=== PATIENT | male | born 1970 | race Caucasian/White ===

== ENCOUNTER → 2018-06-06 12:53 | Outpatient (CLI) | payer OTHER, MEDICAID, SELFPAY ==
[2017-11-07 15:45] VITALS: BMI 37.2
--- NOTE | 2018-06-06 | DI.CT.S_ITS ---
PROCEDURE: CT LUMBAR SPINE WO CON INDICATIONS: LUMBAR RADICULOPATHY BILATERAL TECHNIQUE: Noncontrast 3 mm thick sections acquired from the T12 level to the sacrum. Sagittal and coronal reformats were constructed. In this patient, 3-D reformatted images were also performed. For radiation dose reduction, the following was used: automated exposure control. COMPARISON: [facility], CR, XR LUMBAR SPINE 2-3V, 11/07/2017, 12:38. [facility], MR, L-SPINE W&WO CONTRAST, 04/21/2017, 7:52. [facility], MR, L-SPINE WITHOUT CONTRAST, 11/21/2016, 16:01. [facility], CR, L-SPINE 2-3 VIEWS, 09/27/2016, 9:29. FINDINGS: Image quality: Excellent. Bones: No acute vertebral body compression fractures. No suspicious lytic or blastic bony lesions. Central spinal caliber is of normal overall caliber. No pars defects. Mild dextroconvex scoliotic curvature is seen. No focal AP alignment abnormality is seen. T12-L1: No significant abnormality. L1-L2: Level within normal limits. L2-L3: The disc height is well-preserved. Mild disc bulge is seen. Mild bilateral neural foraminal narrowing is seen. Mild central canal narrowing is seen. L3-L4: The disc height is well-preserved. Moderate disc bulge is seen, which is eccentric to the right side. Moderate bilateral neural foraminal narrowing is seen. Mild to moderate central canal narrowing is seen. L4-L5: Postoperative changes are seen at this level, with bilateral pedicle screws and vertical fixation rods. There is a disc spacer is seen, with a posterior location of the disc spacer itself, as on series 6 image 19 and on series 5 image 27. There is moderate left-sided and mild right-sided neural foraminal narrowing seen. Mild to moderate central canal narrowing is seen. L5-S1: The disc height is well-preserved. Mild generalized disc bulge is seen. Mild facet joint hypertrophy is seen. Bgvm-dy-[id number] bilateral neural foraminal narrowing is seen. Minimal central canal narrowing is seen. Soft tissues: No retroperitoneal masses or hematomas. Visualized aorta is normal in caliber. IMPRESSION: Interval postoperative change at L4-L5. The disc spacer is somewhat posteriorly located. Please correlate with surgical intent. Multiple levels of degenerative change are seen, which are otherwise similar to 2017. Dictated by: Reynaldo Epps M.D. on 06/06/2018 at 14:25 Approved by: Reynaldo Epps M.D. on 06/06/2018 at 14:32
== END ==
PROVIDERS: PCP Family Medicine; Visit Provider Orthopaedic Surgery
DX: M47.26 Other spondylosis with radiculopathy, lumbar region (principal); M48.061 Spinal stenosis, lumbar region without neurogenic claudication; M48.07 Spinal stenosis, lumbosacral region
CPT/HCPCS: 72131

== ENCOUNTER → 2018-11-16 08:21 | Outpatient (CLI) | payer OTHER, MEDICAID, SELFPAY ==
[2017-11-07 15:45] VITALS: BMI 37.2
--- NOTE | 2018-11-16 08:24 | DI.NM.S_ITS ---
PROCEDURE: NM NALINI PERF SPECT R&S PHARM Rest and pharmacological stress myocardial perfusion SPECT with gated imaging and ejection fraction RADIOPHARMACEUTICAL: 25.1 mCi Tc-99m tetrafosmin IV at rest and 25.8 mCi Tc-99m tetrafosmin IV at peak effect of pharmacological stress. Cud-eyc-tkptvwol was performed. INDICATIONS: Diabetes, hypertension,current smoker, hyperlipidemia TECHNIQUE: Radiopharmaceutical was injected at peak stress test, and also at rest. SPECT images were obtained. SPECT myocardial perfusion images were displayed in short axis, horizontal long axis, and vertical long axis views. Gated images were reviewed using [employer] software. COMPARISON: None. CARDIAC STRESS: A pharmacologic stress test was performed under the supervision of an attending staff, using an infusion of lexiscan 0.4mg IV X1. Hemodynamic data: There is normal blood pressure and heart rate response to pharmacologic stress. Symptoms: The patient denied anginal chest pain. Aminophylline: none EKG: Sinus rhythm with no ST-T changes at rest. No diagnostic changes of ischemia with lexiscan; no ectopy. FINDINGS: Raw data: There is good myocardial uptake of radiotracer. No significant motion artifacts. Upxg-fy-qrfuu ratio is 0.44 (normal is less than 0.38 for tetrafosmin tracer). Left ventricle function: Gated images demonstrate normal left ventricular wall thickening. No segmental wall motion abnormalities. No transient ischemic dilation; TID is 0.97 (normal less than 1.3). Left ventricle resting end diastolic volume is 142 mL. Left ventricle stress ejection fraction is 74%; normal range is above 45%. Myocardial perfusion: There is normal distribution of activity in the right and left ventricular myocardium. No fixed or reversible perfusion defects. IMPRESSION: Low risk, normal pharmaceutical nuclear stress test 1) No perfusion evidence of ischemia or infarction. 2) Normal left ventricular size, wall motion, and systolic function (EF post stress 74%). 3) No ECG evidence of ischemia. 4) No angina during the study. 5) No prior nuclear stress test available for comparison. Dictated by: Mariana Latif MD on 11/19/2018 at 11:40 Approved by: Mariana Latif MD on 11/19/2018 at 11:43
--- NOTE | 2018-11-16 09:30 | PM.TREADMILL ---
Cardiac Stress Test Report Referral & Results Date Patient Seen: 11/16/18 Requesting provider: Cate Simmons Indication: Multiple risk factors Rest ECG: Unremarkable Procedure Note: This was initially attempted as a walking Lexiscan but patient was unable to walk even at 0.8 mph for more than 5 or 6 steps. Therefore was converted to a resting Lexiscan exam. After both written and verbal informed consent the patient had an IV started by the diagnostic imaging RN, and then was hooked up to the treadmill monitoring system. The Lexiscan material, and then the Cardiolite tracer, were administered sequentially. An additional 3 min was spent monitoring the patient while supine on the gurney. The patient had a normal response to all infused materials. Impression: See perfusion imaging report for further details Please note: Actual ECG tracings can be found in the PACS system.
== END ==
PROVIDERS: PCP Family Medicine; Visit Provider Family Medicine
DX: E11.9 Type 2 diabetes mellitus without complications (principal); I10 Essential (primary) hypertension; E78.5 Hyperlipidemia, unspecified; F17.200 Nicotine dependence, unspecified, uncomplicated
CPT/HCPCS: 78452; 93016; 93017; 93018; A9502; J2785

== ENCOUNTER → 2018-12-21 08:10 | Outpatient (CLI) | payer OTHER, MEDICAID, SELFPAY ==
[2017-11-07 15:45] VITALS: BMI 37.2
[2018-12-21 09:11] LABS: Appearance Urine UA CLEAR; Bilirubin Urine UA NEGATIVE (NEGATIVE); Color Urine UA YELLOW; Glucose Urine UA NEGATIVE (Negative); Ketones Urine UA NEGATIVE (NEGATIVE); Leukocyte Esterase Urine UA NEGATIVE (NEGATIVE); Nitrite Urine UA NEGATIVE (Negative); Occult Blood Urine UA NEGATIVE (Negative); Protein Urine UA NEGATIVE (Negative); Specific Gravity Urine UA >=1.030 (1.000-1.035)
[2018-12-21 09:22] LABS: Add Manual Diff / Slide Review NO; Basophils Absolute Auto 100 /uL (0-100); Basophils Percent Auto 1.1 % (0-2); Eosinophils Absolute Auto 300 /uL (0-450); Eosinophils Percent Auto 2.8 % (2-4); Hematocrit 46.4 % (41-53); Hemoglobin 15.3 g/dL (13.5-17.5); Lymphocytes Absolute Auto 2500 /uL (1100-4500); Lymphocytes Percent Auto 20.5 % (25-40); Mean Corpuscular Hemoglobin 27.4 PG (26-34); Mean Corpuscular Volume 82.9 fL (80-100); Monocytes Absolute Auto 700 /uL (0-900); Monocytes Percent Auto 5.7 % (3-14); Neutrophils Absolute Auto 8600 /uL (1500-7000); Neutrophils Percent Auto 69.9 % (50-75); Platelet Count 384 X10^3/uL (150-400); Red Cell Distribution Width 13.9 % (11.6-14.8); White Blood Cell Count 12.2 X10^3/uL (4.5-11.0)
[2018-12-21 09:25] LABS: Alanine Aminotransferase 21 IU/L (21-72); Albumin 4.2 g/dL (3.5-5.0); Albumin Globulin Ratio 1.2 (1.0-2.8); Alkaline Phosphatase 102 U/L (38-126); Aspartate Aminotransferase 16 IU/L (17-59); BUN Creatinine Ratio 17.5 (6-22); Bilirubin Total 0.4 mg/dL (0.2-1.3); Blood Urea Nitrogen 14 mg/dL (9-20); Carbon Dioxide 30 mmol/L (22-32); Chloride 101 mmol/L (98-107); Cholesterol 161 mg/dL (140-199); Estimated Glomerular Filt Rate > 60.0 mL/min (>60); Globulin 3.5 g/dL (1.7-4.1); Glucose 148 mg/dL (70-100); HDL Cholesterol 29 mg/dL (40-60); HEMOLYSIS < 15 (0-50); LDL Cholesterol Calculated 114 mg/dL (<100); Potassium 4.2 mmol/L (3.4-5.1); Sodium 139 mmol/L (137-145); Total Protein 7.7 g/dL (6.3-8.2); Triglycerides 92 mg/dL (35-150)
[2018-12-21 09:51] LABS: Prostate Specific Antigen 0.309 ng/mL (0.10-4.00)
[2018-12-21 10:12] LABS: Thyroid Stimulating Hormone 2.31 uIU/mL (0.47-4.68)
== END ==
PROVIDERS: PCP Family Medicine; Visit Provider Family Medicine
DX: E11.9 Type 2 diabetes mellitus without complications (principal); E78.5 Hyperlipidemia, unspecified; I10 Essential (primary) hypertension
CPT/HCPCS: 36415; 80053; 80061; 81003; 83036; 84153; 84443; 85025

== ENCOUNTER → 2019-06-28 09:01 | Outpatient (CLI) | payer OTHER, MEDICAID, SELFPAY ==
[2017-11-07 15:45] VITALS: BMI 37.2
[2019-06-28 09:43] LABS: Hemoglobin A1C% w Est Avg Glu 9.2 % (4.0-6.0)
[2019-06-28 09:59] LABS: BUN Creatinine Ratio 17.1 (6-22); Blood Urea Nitrogen 12 mg/dL (9-20); Estimated Glomerular Filt Rate > 60.0 mL/min (>60)
[2019-06-28 10:03] LABS: Creatinine Urine Random 236.2 mg/dL
[2019-06-28 10:05] LABS: Microalbumi Creatinin Ratio Ur 6.3 ug/mg CR (<30); Microalbumin Urine Random 1.5 mg/dL (0-1.6)
== END ==
PROVIDERS: Family Provider Student in an Organized Health Care Education/Training Program; PCP Family Medicine; Visit Provider Orthopaedic Surgery
DX: Z01.818 Encounter for other preprocedural examination (principal); E11.9 Type 2 diabetes mellitus without complications; E11.69 Type 2 diabetes mellitus with other specified complication; E66.9 Obesity, unspecified
CPT/HCPCS: 36415; 82043; 82565; 82570; 83036; 84520

== ENCOUNTER 2019-08-28 17:57 | Emergency (ER) | payer OTHER, MEDICAID, SELFPAY ==
[2019-07-04 17:57] VITALS: BMI 37.2
[2019-08-28 18:02] VITALS: BP 163/93; PULSE 103; RESP 15; TEMP 37.2; O2SAT 98; BMI 36.7
[2019-08-28 20:35] VITALS: BP 131/83; PULSE 93; RESP 15; O2SAT 96
--- NOTE | 2019-08-28 21:07 | ED_ITS ---
HPI - URI/Sore Throat <JERMAN Naidu - Last Filed: 08/28/19 21:17> General Chief Complaint: Upper Respiratory Symptoms Stated Complaint: cough on going Time Seen by Provider: 08/28/19 19:00 Source: patient Mode of arrival: Ambulatory Limitations: no limitations History of Present Illness HPI Narrative: This is a 48-year-old male, smoker, who presents to ED with cough for 2 months. Patient has history of type 2 diabetes using insulin, hypertension, hyperlipidemia, using albuterol inhaler for allergic asthma. Patient reports he expectorates thick mucus intermittently with some chills with mild nausea. Patient denies fever. He reports has been using inhaler more frequently for his symptoms. Patient had received flu immunization for this season. Patient's spouse is currently ill upper respiratory infection who showed positive a for influenza today. Related Data Previous Rx's Medication Instructions Recorded insulin syringe-needle U-100 1 mL #100 each 07/04/19 31 gauge x 5/16 albuterol sulfate 90 mcg/actuation 2 puff INHALATION Q6H #8.5 gram 07/31/19 aerosol inhaler aspirin 81 mg tablet,delayed 81 mg PO DAILY #90 tab 07/31/19 release bupropion HCl 150 mg tablet,12 hr 150 mg PO DAILY #90 tab 07/31/19 sustained-release hydroxyzine pamoate 25 mg capsule 25 mg PO DAILY #90 cap 07/31/19 insulin regular human 100 unit/mL 10 unit SUBCUT QAC #10 ml MDD 50 07/31/19 injection solution units lisinopril 10 mg tablet 10 mg PO QHS #90 tab 07/31/19 simvastatin 20 mg tablet 20 mg PO QPM #90 tab 07/31/19 insulin detemir U-100 100 unit/mL 35 unit SUBCUT BID #20 ml 08/15/19 subcutaneous solution doxycycline hyclate 100 mg PO BID 7 Days #14 tab 08/28/19 Allergies Allergy/AdvReac Type Severity Reaction Status Date / Time Iodine and Iodide Containing Allergy Severe ANAPHYLACTIC Verified 08/28/19 18:02 Produc RX [IODINE AND IODIDE CONTAINING PRODUC] metformin AdvReac Severe diarrhea Verified 08/28/19 18:02 Review of Systems <JERMAN Naidu - Last Filed: 08/28/19 21:17> Review of Systems Narrative: General: Denies fever, (+) chills, fatigue, malaise, sweats. HEENT: Denies sinus pain, ear pain, sore throat, difficulty swallowing, dizziness. Respiratory: See HPI Cardiovascular: Denies chest pain, palpitations, orthopnea, edema. Gastrointestinal: Denies (+) nausea, vomiting, abdominal pain, diarrhea, constipation, melena. : Denies dysuria, frequency, incontinence, hematuria, urinary retention. Musculoskeletal: Denies weakness, joint pain or bony pain. Skin: Denies rash, skin lesions, or other. Neurologic: Denies weakness, headache, numbness, change in speech, confusion, seizures, incoordination. Psychiatric: No concerning psychosocial issues. 12-point review of systems is negative except for those stated above. Patient History <JERMAN Naidu - Last Filed: 08/28/19 21:17> Medical History Asthma due to environmental allergies (Acute) Hong's palsy (Resolved ~1993) Chickenpox (Resolved 1979) Numbness and tingling of both legs (Acute) Reflux gastritis (Acute) Surgical History H/O lumbar discectomy (Acute) History of arthroscopy of knee (Acute) History of spinal fusion (Acute) S/P arthroscopy of left shoulder (Acute) Family History Father Heart disease Grandmother Cancer Grandfather Diabetes mellitus Heart disease Hypertension Stroke Grandmother Age: 93 Breast cancer Social History household members: spouse and children Smoking Status: Current every day smoker alcohol intake: former Smoking Status: Current every day smoker alcohol intake frequency: holidays/special occasions only Substance Use Type: does not use Exam <JERMAN Naidu - Last Filed: 08/28/19 21:17> Narrative Exam Narrative: GEN: Alert, oriented x 3, well appearing and nourished, and in no acute distress. Head: Normal cephalic, atraumatic. No scalp or temporal tenderness, palpable mass or rash. EYES: Pupils are equal, round, and reactive to light and accommodation. Extraocular muscles are intact bilaterally. There is no subconjunctival hemorrhage, exudate and sclera non-icteric. ENT: Bilateral auditory canals and tympanic membranes clear. Hearing grossly intact. Nose without bleeding, purulent discharge or deviation. Facial sinuses nontender to palpate. Mucous membrane moist, no mucosal lesion. Throat without erythema, tonsillar hypertrophy or exudate. Uvula in midline, airway patent. Neck: Trachea in midline. No JVD, non-tender without lymphadenopathy. No masses or thyroid megaly. Supple, non-tender and no meningeal signs. CARDIAC: Normal regular rate and rhythm without murmurs, gallops, or rubs. No chest wall tenderness. No peripheral edema, cyanosis or pallor. Capillary refill is less than 2 seconds. RESPIRATORY: Lungs are clear to auscultate bilaterally with occasional fine crackles in lower lobes. Occasional cough witnessed without wheezes or rhonchi. No stridor, respiratory distress, increase work of breathing, or accessary muscle used. ABD: Abdomen soft, nontender and non-distended. No guarding or rebound tenderness to palpate. Bowel sounds are normal in all 4 quadrants. There is no palpable masses or organomegaly. EXT: Full painless ROM of all extremities with no loss of sensation, strength, effusion or edema. SKIN: Warm, dry, normal color for patient. No erythema, lesions or rash over visible areas. BACK: Nontender without deformity or crepitance. No flank tenderness. NEUROLOGICAL: Alert and oriented to place, time and person. Sensation and motor function intact bilaterally. No facial droops, dysphasia. PSYCHIATRIC: Good judgement and reason, without hallucinations, abnormal affect or abnormal behaviors during the examination. Patient is not suicidal. Initial Vital Signs Initial Vital Signs: Vital Signs Temperature 98.9 F 08/28/19 18:02 Pulse Rate 103 H 08/28/19 18:02 Respiratory Rate 15 08/28/19 18:02 Blood Pressure 163/93 H 08/28/19 18:02 Pulse Oximetry 98 08/28/19 18:02 <Peri Savage MD - Last Filed: 08/29/19 00:20> Initial Vital Signs Initial Vital Signs: Vital Signs Temperature 98.9 F 08/28/19 18:02 Pulse Rate 103 H 08/28/19 18:02 Respiratory Rate 15 08/28/19 18:02 Blood Pressure 163/93 H 08/28/19 18:02 Pulse Oximetry 98 08/28/19 18:02 Scores <ERIN NaiduP - Last Filed: 08/28/19 21:17> GCS [place] coma scale eye opening: Spontaneous [place] coma scale verbal response: Orientated [place] coma scale motor response: Obey commands [place] coma scale total score: 15 Course <Roland Jose PHOTOGRAMMETRIC TECH - Last Filed: 08/28/19 21:17> Vital Signs Vital signs: Vital Signs - 8 hr 08/28/19 18:02 08/28/19 20:35 Temperature 98.9 F Pulse Rate 103 H 93 H Respiratory Rate 15 15 Blood Pressure 163/93 H 131/83 Pulse Oximetry 98 96 <Peri Savage MD - Last Filed: 08/29/19 00:20> Vital Signs Vital signs: Vital Signs - 8 hr 08/28/19 18:02 08/28/19 20:35 Temperature 98.9 F Pulse Rate 103 H 93 H Respiratory Rate 15 15 Blood Pressure 163/93 H 131/83 Pulse Oximetry 98 96 MDM - URI/Sore Throat <Roland ERIN GarciaP - Last Filed: 08/28/19 21:17> Differential Diagnosis Differential diagnosis: Likely upper respiratory infection, viral infection, bronchitis and other (Pneumonia) Medical Records Attestation: I reviewed the patient's medical records. MDM Narrative Medical decision making narrative: This is 48 year male who presents to ED with ongoing cough for last 2 months who has history of diabetes with insulin use, hypertension, hyperlipidemia and asthma from allergies. Patient reports has been using inhaler more frequently since his illness. Patient does not have obvious constitutional symptoms such as fever but has occasional nausea and chills. Lung sounds were relatively clear in all lobes with exception in lower lobes with very fine crackles. There was no wheezing or increased work of breathing appreciated. Given patient's chronic medical conditions including diabetes, asthma, hypertension and duration of patient's symptoms over 2 months, it is elected to treat patient with 7 day course of doxycycline b.i.d.. Patient advised to use good hand hygiene to prevent exposing to flu from his . Patient advised supportive care and to use inhaler 2 puffs every 4-6 hours as needed for coughing. Influenza medication has not been prescribed at this time since patient does endorses fever, body aches, headache and had received influenza vaccination this season. We discussed smoking cessation to prevent further respiratory illnesses and return precautions. Patient verbalized understanding and in agreement with treatment plan. Discharge Plan Departure Patient Disposition: Home Clinical Impression: Pneumonia Qualifiers: Pneumonia type: due to unspecified organism Laterality: unspecified laterality Lung location: unspecified part of lung Qualified Code(s): J18.9 - Pneumonia, unspecified organism Discharge Date/Time: 08/28/19 20:36 Instructions: DI for Pneumonia -- Adult Activity Restrictions/Additional Instructions: You have been diagnosed with [community-acquired pneumonia. Cough for last 2 months with history of hypertension, insulin-dependent type 2 diabetes, asthma and will cover with antibiotic medication empirically]. What to do: *Take your medications as directed. Please start doxycycline twice a day for next 7 days. Please hydrate adequately, use inhaler 2 puffs every 4-6 hours as needed for frequent coughing. You can use Mucinex DM for your symptoms as well and [id number] Tylenol and or Motrin as needed for discomfort and fever. Please use good hand hygiene to prevent aye to flu. *Follow up with your primary care provider in 2-3 days, call for an appointment. Let them know you were seen in the ED and that we asked you to be seen in [facility]. *Return to ED if you have any new, worsening, or concerning symptoms, such as [chest pain, breathing difficulty, high fever, unable to tolerate fluids or any acute concerns.]. Prescriptions: New doxycycline hyclate 100 mg tablet 100 mg PO BID 7 Days Qty: 14 RF: 0 No Action (DME) insulin syringe-needle U-100 [[facility]ocate Syringes] 1 mL 31 gauge x 5/16 syringe See Dose Instructions .ROUTE .MEDSUPPLY Qty: 100 RF: 3 insulin detemir U-100 100 unit/mL solution 35 unit SUBCUT BID Qty: 20 RF: 5 Humulin R Regular U-100 Insuln 100 unit/mL solution 10 unit SUBCUT QAC MDD 50 units Qty: 10 RF: 5 albuterol sulfate [Proventil HFA] 90 mcg/actuation HFA aerosol inhaler 2 puff INHALATION Q6H Qty: 8.5 RF: 5 aspirin [Adult Low Dose Aspirin] 81 mg tablet,delayed release (DR/EC) 81 mg PO DAILY Qty: 90 RF: 3 bupropion HCl [Wellbutrin SR] 150 mg tablet sustained-release 12 hr 150 mg PO DAILY Qty: 90 RF: 3 hydroxyzine pamoate 25 mg capsule 25 mg PO DAILY Qty: 90 RF: 1 lisinopril 10 mg tablet 10 mg PO QHS Qty: 90 RF: 3 simvastatin 20 mg tablet 20 mg PO QPM Qty: 90 RF: 3 Referrals: Peewee Martinez MD [Primary Care Provider] -
== END 2019-08-28 20:36 | disposition home or self-care (01) ==
PROVIDERS: Emergency Provider Nurse Practitioner Family; Family Provider Student in an Organized Health Care Education/Training Program; PCP Student in an Organized Health Care Education/Training Program
DX: J18.9 Pneumonia, unspecified organism (principal)
CPT/HCPCS: 99281

== ENCOUNTER → 2020-05-13 11:17 | Outpatient (CLI) | payer OTHER, MEDICAID, SELFPAY ==
[2019-07-04 17:57] VITALS: BMI 37.2
[2020-05-13 12:35] LABS: Hemoglobin A1C% w Est Avg Glu 9.1 % (4.0-6.0)
[2020-05-13 12:54] LABS: Alanine Aminotransferase 18 IU/L (<50); Albumin 3.9 g/dL (3.5-5.0); Albumin Globulin Ratio 1.3 (1.0-2.8); Alkaline Phosphatase 90 U/L (38-126); Aspartate Aminotransferase 15 IU/L (17-59); BUN Creatinine Ratio 17.5 (6-22); Bilirubin Total 0.5 mg/dL (0.2-1.3); Blood Urea Nitrogen 11 mg/dL (9-20); C-Reactive Protein Quant 0.7 mg/dL (<1.0); Calcium 9.4 mg/dL (8.4-10.2); Carbon Dioxide 27 mmol/L (22-32); Chloride 104 mmol/L (98-107); Estimated Glomerular Filt Rate > 60.0 mL/min (>60); Gamma Glutamyl Transpeptidase 23 U/L (15-73); Glucose 229 mg/dL (70-100); HEMOLYSIS < 15 (0-50); Lipase 23 U/L (23-300); Potassium 4.5 mmol/L (3.4-5.1); Sodium 136 mmol/L (137-145); Total Protein 6.9 g/dL (6.3-8.2)
[2020-05-14 15:40] LABS: Tissue Transglutaminase IgG 7 U/mL (0-5)
== END ==
PROVIDERS: Family Provider Student in an Organized Health Care Education/Training Program; PCP Student in an Organized Health Care Education/Training Program; Referring Provider Student in an Organized Health Care Education/Training Program; Visit Provider Student in an Organized Health Care Education/Training Program
DX: E11.9 Type 2 diabetes mellitus without complications (principal); R10.13 Epigastric pain; R68.81 Early satiety
CPT/HCPCS: 36415; 80053; 82977; 83036; 83516; 83690; 86140

== ENCOUNTER → 2020-05-19 08:00 | Outpatient (CLI) | payer OTHER, MEDICAID, SELFPAY ==
[2019-07-04 17:57] VITALS: BMI 37.2
[2020-05-19 10:24] LABS: Creatinine Urine Random 138.1 mg/dL
[2020-05-19 10:28] LABS: Microalbumin Urine Random 0.7 mg/dL (0-1.6)
[2020-05-22 07:09] LABS: H. Pylori Antigen Stool Negative (Negative)
== END ==
PROVIDERS: Family Provider Student in an Organized Health Care Education/Training Program; PCP Student in an Organized Health Care Education/Training Program; Referring Provider Student in an Organized Health Care Education/Training Program; Visit Provider Student in an Organized Health Care Education/Training Program
DX: E11.9 Type 2 diabetes mellitus without complications (principal); R10.13 Epigastric pain; R68.81 Early satiety
CPT/HCPCS: 82043; 82570; 87338

== ENCOUNTER → 2020-08-27 11:38 | Outpatient (CLI) | payer OTHER, MEDICAID, SELFPAY ==
[2019-07-04 17:57] VITALS: BMI 37.2
== END ==
PROVIDERS: Family Provider Student in an Organized Health Care Education/Training Program; PCP Student in an Organized Health Care Education/Training Program; Referring Provider Student in an Organized Health Care Education/Training Program; Visit Provider Student in an Organized Health Care Education/Training Program
DX: E11.9 Type 2 diabetes mellitus without complications (principal)
CPT/HCPCS: 36415; 83036

== ENCOUNTER → 2021-01-14 10:33 | Outpatient (CLI) | payer OTHER, MEDICAID, SELFPAY ==
[2019-07-04 17:57] VITALS: BMI 37.2
--- NOTE | 2021-01-14 10:35 | DI.RAD.S_ITS ---
PROCEDURE: [place] UPPER GI SERIES INDICATIONS: Epigastric discomfort and weight loss. COMPARISON: None. FINDINGS: KUB: Preprocedural ice puller film demonstrates a normal bowel gas pattern. No suspicious abdominal calcifications. Visualized solid organ contours appear normal. Bony structures appear unremarkable. There is discectomy and spinal fusion at L4-L5. A moderate amount of stool in colon. Esophagus: Esophageal mucosa is normal on air-contrast views. There is normal esophageal peristalsis. Mild focal narrowing is seen at the gastroesophageal junction. No strictures, extrinsic mass effects, or diverticula. No hiatal hernia. Mild gastroesophageal reflux. There is delayed transit of a calibrated barium tablet at the GE junction. Stomach: The stomach is normally distensible, with normal rugal fold thickness. No mucosal masses or ulcers. Pylorus and duodenal bulb appear normal in morphology. Duodenal folds are normal in thickness as well. IMPRESSION: 1. Mild focal narrowing at the gastroesophageal junction with mild obstruction of the calibrated barium pill. Recommend EGD for further evaluation. 2. Mild gastroesophageal reflux. Dictated by: Shalini White M.D. on 01/14/2021 at 12:25 Approved by: Shalini hWite M.D. on 01/14/2021 at 12:32
== END ==
PROVIDERS: Family Provider Student in an Organized Health Care Education/Training Program; PCP Student in an Organized Health Care Education/Training Program; Referring Provider Student in an Organized Health Care Education/Training Program; Visit Provider Student in an Organized Health Care Education/Training Program
DX: R10.13 Epigastric pain (principal); R63.4 Abnormal weight loss; K21.9 Gastro-esophageal reflux disease without esophagitis
CPT/HCPCS: 74240

== ENCOUNTER → 2021-02-05 07:38 | Outpatient (CLI) | payer OTHER, MEDICAID, SELFPAY ==
[2019-07-04 17:57] VITALS: BMI 37.2
--- NOTE | 2021-02-05 07:40 | DI.NM.S_ITS ---
PROCEDURE: NM GASTRIC EMPTYING STUDY RADIOPHARMACEUTICAL: 1.1 mCi Tc-99m sulfur colloid in an egg sandwich. INDICATIONS: Gastric distention, uncontrolled DM TECHNIQUE: A Tc-99m labeled sulfur colloid labeled egg sandwich or oatmeal was served to the patient. Anterior and posterior planar images of the abdomen were obtained at 0 minutes and 30 minutes, then at hourly intervals up to 4 hours. The patient was upright and ambulating during the interval. COMPARISON: [facility], , [place] UPPER GI SERIES, 01/14/2021, 10:54. FINDINGS: The stomach has normal size, morphology, and position. There is normal emptying of solid gastric contents from the stomach by visual inspection. No gastroesophageal reflux is visualized. The percentage of tracer retained at specific time points are as follows: Time point Percent gastric retention Normal range 30 minutes 68% 70% or more 1 hour 27% 30% to 90% 2 hours 7.9% 60% or less 3 hours 5.5% 30% or less 4 hours = 10% or less IMPRESSION: The initial 30 minutes emptying of gastric content is borderline faster than normal. Otherwise normal gastric emptying study. Dictated by: Shalini White M.D. on 02/05/2021 at 11:50 Approved by: Shalini White M.D. on 02/05/2021 at 11:52
== END ==
PROVIDERS: Family Provider Student in an Organized Health Care Education/Training Program; PCP Student in an Organized Health Care Education/Training Program; Referring Provider Student in an Organized Health Care Education/Training Program; Visit Provider Student in an Organized Health Care Education/Training Program
DX: R10.13 Epigastric pain (principal); E11.9 Type 2 diabetes mellitus without complications; Z79.4 Long term (current) use of insulin
CPT/HCPCS: 78264; A9541

== ENCOUNTER → 2021-02-23 15:36 | Outpatient (CLI) | payer OTHER, MEDICAID, SELFPAY ==
[2019-07-04 17:57] VITALS: BMI 37.2
[2021-02-23 16:10] LABS: COVID19 -Nasal RAPID POSITIVE (Negative)
== END ==
PROVIDERS: Family Provider Student in an Organized Health Care Education/Training Program; PCP Student in an Organized Health Care Education/Training Program; Referring Provider Physician Assistant; Visit Provider Physician Assistant
DX: U07.1 COVID-19 (principal)
CPT/HCPCS: 87635

== ENCOUNTER → 2021-07-20 10:36 | Outpatient (CLI) | payer OTHER, MEDICAID, SELFPAY ==
[2019-07-04 17:57] VITALS: BMI 37.2
[2021-07-20 12:02] LABS: BUN Creatinine Ratio 18.5 (6-22); Blood Urea Nitrogen 10 mg/dL (9-20); Calcium 9.4 mg/dL (8.4-10.2); Carbon Dioxide 28 mmol/L (22-32); Chloride 104 mmol/L (98-107); Cholesterol 164 mg/dL (140-199); Estimated Glomerular Filt Rate > 60.0 mL/min (>60); Glucose 274 mg/dL (70-100); HDL Cholesterol 29 mg/dL (40-60); HEMOLYSIS < 15 (0-50); LDL Cholesterol Calculated 110 mg/dL (<100); Potassium 4.3 mmol/L (3.4-5.1); Sodium 137 mmol/L (137-145); Triglycerides 126 mg/dL (35-150)
[2021-07-20 12:05] LABS: Creatinine Urine Random 89.2 mg/dL
[2021-07-20 12:07] LABS: Microalbumi Creatinin Ratio Ur 7.8 ug/mg CR (<30); Microalbumin Urine Random 0.7 mg/dL (0-1.6)
[2021-07-21 04:17] LABS: Fructosamine 353 umol/L (0-285)
== END ==
PROVIDERS: Family Provider Student in an Organized Health Care Education/Training Program; PCP Student in an Organized Health Care Education/Training Program; Referring Provider Student in an Organized Health Care Education/Training Program; Visit Provider Student in an Organized Health Care Education/Training Program
DX: E11.59 Type 2 diabetes mellitus with other circulatory complications (principal); E11.69 Type 2 diabetes mellitus with other specified complication; E11.9 Type 2 diabetes mellitus without complications; E78.5 Hyperlipidemia, unspecified; I10 Essential (primary) hypertension; Z79.4 Long term (current) use of insulin
CPT/HCPCS: 36415; 80048; 80061; 82043; 82570; 82985

== ENCOUNTER → 2021-10-13 12:41 | Outpatient (CLI) | payer OTHER, MEDICAID, SELFPAY ==
[2019-07-04 17:57] VITALS: BMI 37.2
[2021-10-13 14:12] LABS: Hemoglobin A1C% w Est Avg Glu 11.7 % (4.0-6.0)
== END ==
PROVIDERS: Family Provider Student in an Organized Health Care Education/Training Program; PCP Student in an Organized Health Care Education/Training Program; Referring Provider Student in an Organized Health Care Education/Training Program; Visit Provider Student in an Organized Health Care Education/Training Program
DX: E11.9 Type 2 diabetes mellitus without complications (principal); Z79.4 Long term (current) use of insulin
CPT/HCPCS: 36415; 83036

== ENCOUNTER 2022-09-13 13:03 | Day surgery (SDC) | payer OTHER, MEDICAID, SELFPAY ==
[2019-07-04 17:57] VITALS: BMI 37.2
[2022-09-13] MEDS: LACTATED RINGERS 1,000 ML 200 ML IV (13:43)
--- NOTE | 2022-09-13 13:54 | P.OP.COLON_ITS ---
Operative Date/Time/Diagnoses Date of procedure: 09/13/22 Time of procedure: 13:54 Pre-op diagnosis: Colorectal screening Post-op diagnosis: same Procedure & Clinicians Study performed: Colonoscopy aborted Same procedure as scheduled: Yes Indications: Colorectal screening Surgeon: Jim Rodriguez Procedure Notes Procedure in detail: The history and physical was performed/updated and the patient is ASA class is2. The procedure was discussed in detail with the patient. Potential risks complications including infection, bleeding, missed diagnosis, perforation, need for surgery, and were explained. Their questions were answered and i nformed consent was obtained. Patient was brought to the procedure room and placed standard monitoring equipment. The patient's vital signs were monitored continuously throughout the entire procedure. Prior to starting time-out was performed. The patient was placed in the left lateral recumbent position. Procedural sedation was administered by anesthesia. Examination began with a thorough inspection of the perianal area there was no evidence of fissures, fistulae, external hemorrhoids or cutaneous malignancy. The colonoscopy scope was then placed into the anal canal and was advanced forward. Quality of the prep was inadequate for screening and for safe performance of the procedure. Procedure was aborted Impression: Aborted colonoscopy Post-procedure Recommendations: High fiber diet Plan for aftercare: Reschedule colonoscopy with alternative prep Disposition: same day surgery
--- NOTE | 2022-09-13 13:54 | PM.HP.1 ---
History of Present Illness History of Present Illness Date Patient Seen: 09/13/22 Time Patient Seen: 13:54 Chief complaint: Screening Colonoscopy Narrative: The patient presents for colorectal screening. They have never had any previous examination for such. No personal or family history of colon cancer. On further history denies any recent gastrointestinal symptoms. No nausea, vomiting, abdominal pain, loss of appetite, unexplained weight loss, change in bowel habits, or blood per rectum. Patient History Medical History (Updated 07/24/22 @ 13:15 by Peewee Martinez MD) Arachnoiditis Asthma due to environmental allergies Hong's palsy (~1993) Chickenpox (1979) COVID-19 Former smoker Herniation of lumbar intervertebral disc with radiculopathy (2015) Numbness and tingling of both legs Reflux gastritis Tobacco abuse Surgical History H/O lumbar discectomy History of arthroscopy of knee History of spinal fusion S/P arthroscopy of left shoulder Family & Social History Family History Father Heart disease Grandmother Cancer Grandfather Diabetes mellitus Heart disease Hypertension Stroke Grandmother Age: 96 Breast cancer Social History: household members spouse,children Tobacco & Substance use: Tobacco type cigarettes Smoking Status Former smoker alcohol intake former alcohol intake frequency holiday/special occasion Substance Use Type does not use Meds Home Medications and Allergies Home Medications Medication Instructions Recorded Confirmed Type albuterol sulfate 90 mcg/actuation 2 puff inhalation Q4-6H PRN 12/02/21 09/13/22 Rx aerosol inhaler (ProAir HFA) shortness of breath or wheezing #18 grams aspirin 81 mg tablet,delayed 81 mg PO DAILY #90 tabs 07/21/22 09/13/22 Rx release (Adult Low Dose Aspirin) bupropion HCl 150 mg tablet,12 hr 150 mg PO DAILY #90 tabs 07/21/22 09/13/22 Rx sustained-release (Wellbutrin SR) fluticasone propionate 110 1 puff inhalation BID #12 grams 07/21/22 09/13/22 Rx mcg/actuation HFA aerosol inhaler hydroxyzine pamoate 25 mg capsule 25 mg PO DAILY PRN Itching #90 07/21/22 09/13/22 Rx caps insulin detemir U-100 100 unit/mL 30 unit (0.3 mL) SUBCUT BID #60 mL 07/21/22 09/13/22 Rx subcutaneous solution insulin regular human 100 unit/mL 15 unit (0.15 mL) SUBCUT QAC #45 mL 07/21/22 09/13/22 Rx injection solution (Humulin R Regular U-100 Insulin) insulin syringe-needle U-100 1 mL #100 ea 07/21/22 Rx 31 gauge x 5/16 ([employer]ocate Syringes) lisinopril 10 mg tablet 10 mg PO QHS #90 tabs 07/21/22 09/13/22 Rx simvastatin 20 mg tablet 20 mg PO QPM #90 tabs 07/21/22 09/13/22 Rx flash glucose sensor (FreeStyle #2 ea 08/25/22 Rx Thomas 2 Sensor kit) Allergies Allergy/AdvReac Type Severity Reaction Status Date / Time Iodine and Iodide Containing Allergy Severe ANAPHYLACTIC Verified 09/13/22 13:46 Produc RX [IODINE AND IODIDE CONTAINING PRODUC] metformin AdvReac Severe diarrhea Verified 09/13/22 13:46 Exam Narrative Exam Narrative: General adult man alert oriented no acute distress Abdomen soft nontender nondistended Assessment & Plan Assessment & Plan narrative: The patient requires colorectal screening and colonoscopy is recommended. Technical details were discussed. Risks, benefits, alternatives explained. Risks including but not limited to myocardial infarction, aspiration, bleeding, pain, missed lesion, incomplete examination, need for further radiographic studies, colonic perforation, and need for major abdominal surgery were discussed. All questions were answered to their satisfaction, and they are in agreement with this plan. Time Spent With Patient Critical Care time: I spent a total of [] minutes of critical care time on this patient's care today; this time is exclusive of procedural time.
[2022-09-13 13:57] VITALS: BP 174/98; PULSE 84; RESP 16; TEMP 36.3; O2SAT 100; BMI 33.7
[2022-09-13 15:22] VITALS: BP 122/81; PULSE 74; RESP 16; TEMP 36.5; O2SAT 98
[2022-09-13 15:29] VITALS: BP 108/75; PULSE 84; RESP 14; TEMP 36.5; O2SAT 98
[2022-09-13 15:34] VITALS: BP 132/89; PULSE 77; RESP 10; TEMP 36.3; O2SAT 97
[2022-09-13 15:49] VITALS: BP 138/89; PULSE 72; RESP 18; TEMP 36.6; O2SAT 97
== END 2022-09-13 16:03 | disposition home or self-care (01) ==
PROVIDERS: Family Provider Student in an Organized Health Care Education/Training Program; PCP Student in an Organized Health Care Education/Training Program; Referring Provider Surgery; Visit Provider Surgery
PROC: 0DJD8ZZ Inspection of Lower Intestinal Tract, Via Natural or Artificial Opening Endoscopic (ICD-10-PCS; CPT 45378; principal; 2022-09-13 14:15)
DX: Z12.11 Encounter for screening for malignant neoplasm of colon (principal); Z53.09 Procedure and treatment not carried out because of other contraindication
CPT/HCPCS: 45378; J2704

== ENCOUNTER → 2023-03-23 11:46 | Outpatient (CLI) | payer OTHER, MEDICAID, SELFPAY ==
[2019-07-04 17:57] VITALS: BMI 37.2
[2023-03-23 12:13] LABS: Add Manual Diff / Slide Review NO; Basophils Absolute Auto 100 /uL (0-100); Basophils Percent Auto 0.9 % (0-2); Eosinophils Absolute Auto 300 /uL (0-450); Eosinophils Percent Auto 2.4 % (2-4); Hematocrit 45.3 % (41-53); Hemoglobin 15.2 g/dL (13.5-17.5); Lymphocytes Absolute Auto 2200 /uL (1100-4500); Lymphocytes Percent Auto 21.3 % (25-40); Mean Corpuscular HGB Conc 33.6 % (30-36); Mean Corpuscular Hemoglobin 28.7 PG (26-34); Mean Corpuscular Volume 85.4 fL (80-100); Monocytes Absolute Auto 700 /uL (0-900); Monocytes Percent Auto 6.8 % (3-14); Neutrophils Absolute Auto 7100 /uL (1500-7000); Neutrophils Percent Auto 68.6 % (50-75); Platelet Count 329 X10^3/uL (150-400); Red Blood Cell Count 5.31 X10^6/uL (4.5-5.9); Red Cell Distribution Width 14.6 % (11.6-14.8); White Blood Cell Count 10.4 X10^3/uL (4.5-11.0)
[2023-03-23 12:35] LABS: Hemoglobin A1C% w Est Avg Glu 9.2 % (4.0-6.0)
[2023-03-23 12:39] LABS: Alanine Aminotransferase 24 IU/L (<50); Albumin 4.2 g/dL (3.5-5.0); Albumin Globulin Ratio 1.3 (1.0-2.8); Alkaline Phosphatase 78 U/L (38-126); Aspartate Aminotransferase 17 IU/L (17-59); BUN Creatinine Ratio 19.1 (6-22); Bilirubin Total 0.6 mg/dL (0.2-1.3); Blood Urea Nitrogen 13 mg/dL (9-20); Calcium 9.7 mg/dL (8.4-10.2); Carbon Dioxide 25 mmol/L (22-32); Chloride 103 mmol/L (98-107); Cholesterol 156 mg/dL (140-199); Estimated Glomerular Filt Rate > 60 mL/min (>60); Globulin 3.2 g/dL (1.7-4.1); Glucose 174 mg/dL (70-100); HDL Cholesterol 34 mg/dL (40-60); HEMOLYSIS < 15 (0-50); LDL Cholesterol Calculated 96 mg/dL (<100); Potassium 4.6 mmol/L (3.4-5.1); Sodium 136 mmol/L (137-145); Total Protein 7.4 g/dL (6.3-8.2); Triglycerides 129 mg/dL (35-150)
[2023-03-23 13:09] LABS: Prostate Specific Antigen Scrn 0.438 ng/mL (0.1-4.0)
[2023-03-23 15:51] LABS: Appearance Urine UA CLEAR; Bilirubin Urine UA NEGATIVE (NEGATIVE); Color Urine UA YELLOW; Glucose Urine UA NEGATIVE (Negative); Ketones Urine UA NEGATIVE (NEGATIVE); Leukocyte Esterase Urine UA NEGATIVE (NEGATIVE); Nitrite Urine UA NEGATIVE (Negative); Occult Blood Urine UA NEGATIVE (Negative); Protein Urine UA NEGATIVE (Negative); Specific Gravity Urine UA <=1.005 (1.000-1.035); pH Urine UA 5.5 (4.5-8.0)
[2023-03-23 16:24] LABS: Creatinine Urine Random 61.3 mg/dL; Microalbumin Urine Random < 0.6 mg/dL (0-1.6)
[2023-03-23 16:36] LABS: Bacteria Urine None Seen; Culture Indicated Urine Cult Not Indicated; RBC Urine 0-1/HPF (0-5/HPF); Squamous Epithelial Cell Urine 0-1 /HPF (0-5/HPF); WBC Urine None Seen (0-5/HPF)
== END ==
PROVIDERS: Family Provider Student in an Organized Health Care Education/Training Program; PCP Pediatrics; Referring Provider Pediatrics; Visit Provider Pediatrics
DX: E11.59 Type 2 diabetes mellitus with other circulatory complications (principal); I10 Essential (primary) hypertension; E66.01 Morbid (severe) obesity due to excess calories; E11.9 Type 2 diabetes mellitus without complications; J45.909 Unspecified asthma, uncomplicated; R06.02 Shortness of breath; Z12.5 Encounter for screening for malignant neoplasm of prostate; E11.69 Type 2 diabetes mellitus with other specified complication; E78.5 Hyperlipidemia, unspecified
CPT/HCPCS: 36415; 80053; 80061; 81001; 82043; 82570; 83036; 84443; 85025; G0103

== ENCOUNTER 2023-04-08 21:28 | Emergency (ER) | payer OTHER, MEDICAID, SELFPAY ==
[2019-07-04 17:57] VITALS: BMI 37.2
[2023-04-08] VITALS (8 sets, daily range): BP systolic 147–171; BP diastolic 84–102; PULSE 95–113; RESP 15–22; TEMP 37.3; O2SAT 94–97; BMI 35.5
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
[2023-04-08] MEDS: methylPREDNISolone 125 MG/2 ML VIAL IV (21:59)
[2023-04-08] MEDS: MORPHINE 4 MG/ML INJ IV (22:00)
[2023-04-08] MEDS: diphenhydrAMINE 50 MG/ML VIAL 25 MG IV (22:00)
[2023-04-08 22:14] LABS: Add Manual Diff / Slide Review NO; Basophils Absolute Auto 100 /uL (0-100); Basophils Percent Auto 0.6 % (0-2); Eosinophils Absolute Auto 300 /uL (0-450); Eosinophils Percent Auto 1.9 % (2-4); Hematocrit 43.9 % (41-53); Hemoglobin 14.8 g/dL (13.5-17.5); Lymphocytes Absolute Auto 2000 /uL (1100-4500); Lymphocytes Percent Auto 14.3 % (25-40); Mean Corpuscular HGB Conc 33.7 % (30-36); Mean Corpuscular Hemoglobin 29.1 PG (26-34); Mean Corpuscular Volume 86.3 fL (80-100); Monocytes Absolute Auto 700 /uL (0-900); Monocytes Percent Auto 4.7 % (3-14); Neutrophils Absolute Auto 10900 /uL (1500-7000); Neutrophils Percent Auto 78.5 % (50-75); Platelet Count 395 X10^3/uL (150-400); Red Blood Cell Count 5.09 X10^6/uL (4.5-5.9); Red Cell Distribution Width 15.1 % (11.6-14.8); White Blood Cell Count 13.8 X10^3/uL (4.5-11.0)
[2023-04-08 22:22] LABS: INR 1.1 (0.9-1.3); Prothrombin Time 12.1 SECONDS (10.1-12.7)
[2023-04-08 22:24] LABS: PTT Partial Thromboplastin Tim 35 SECONDS (26-36)
[2023-04-08 22:25] LABS: Lactate (Lactic Acid) 1.6 mmol/L (0.7-2.1)
[2023-04-08 22:27] LABS: Alanine Aminotransferase 25 IU/L (<50); Albumin 4.2 g/dL (3.5-5.0); Albumin Globulin Ratio 1.3 (1.0-2.8); Alkaline Phosphatase 85 U/L (38-126); Aspartate Aminotransferase 23 IU/L (17-59); BUN Creatinine Ratio 21.2 (6-22); Bilirubin Total 0.4 mg/dL (0.2-1.3); Blood Urea Nitrogen 18 mg/dL (9-20); Calcium 9.4 mg/dL (8.4-10.2); Carbon Dioxide 23 mmol/L (22-32); Chloride 105 mmol/L (98-107); Estimated Glomerular Filt Rate > 60 mL/min (>60); Ethanol (ETOH) < 10 mg/dL; Globulin 3.3 g/dL (1.7-4.1); Glucose 235 mg/dL (70-100); HEMOLYSIS 22 (0-50); Lipase 33 U/L (23-300); Potassium 4.1 mmol/L (3.4-5.1); Sodium 139 mmol/L (137-145); Total Protein 7.5 g/dL (6.3-8.2)
[2023-04-08] MEDS: TET,DIPH,PERTUSS(ACELL),VAC/PF 0.5 ML SYRINGE IM (22:46)
[2023-04-08] MEDS: HYDROMORPHONE 1 MG INJ IV (23:17)
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
[2023-04-09] VITALS (9 sets, daily range): BP systolic 124–177; BP diastolic 73–87; PULSE 91–101; RESP 12–22; O2SAT 94–97
[2023-04-09] MEDS: CEFAZOLIN VIAL 1 GM in SODIUM CHLORIDE 0.9% 100 ML IV (00:08)
--- NOTE | 2023-04-09 00:56 | PC.NURSE ---
Late entry: Provider injected lidocaine SQ into patients left top of foot for wound care. Once wound had been cleaned and debrided, provider evaluated wound bed including visible tendon. Wound covered with alleyvan dressing.
[2023-04-09 01:06] LABS: COVID19 -Nasal RAPID Negative (Negative)
[2023-04-09] MEDS: HYDROMORPHONE 1 MG INJ IV (02:32)
[2023-04-09] MEDS: HYDROCODONE/ACET 5/325 PREPACK 1 BOTTLE MISC (02:56)
== END 2023-04-09 03:08 | disposition home or self-care (01) ==
PROVIDERS: Emergency Provider Emergency Medicine; Family Provider Student in an Organized Health Care Education/Training Program; PCP Pediatrics
DX: S62.636A Displaced fracture of distal phalanx of right little finger, initial encounter for closed fracture (principal); S09.90XA Unspecified injury of head, initial encounter; R07.81 Pleurodynia; V20.49XA Other motorcycle driver injured in collision with pedestrian or animal in traffic accident, initial encounter; Z79.899 Other long term (current) drug therapy; Z20.822 Contact with and (suspected) exposure to COVID-19
CPT/HCPCS: 36415; 70450; 71045; 71260; 72125; 73130; 73562; 73610; 73630; 74177; 80053; 80320; 83605; 83690; 85025; 85610; 85730; 86850; 86900; 86901; 87635; 90471; 93005; 96365; 96375; 96376; 99285; C9803; 90715; J0690; J1170; J1200; J2270; J2930; Q9967

== ENCOUNTER → 2023-05-10 13:04 | Outpatient (CLI) | payer OTHER, MEDICAID, SELFPAY ==
[2023-05-01 10:45] VITALS: BMI 37.2
== END ==
PROVIDERS: Family Provider Student in an Organized Health Care Education/Training Program; PCP Family Medicine; Referring Provider Pediatrics; Visit Provider Pediatrics
DX: R06.02 Shortness of breath (principal); U09.9 Post COVID-19 condition, unspecified; R05.9 Cough, unspecified; J45.998 Other asthma; Z87.891 Personal history of nicotine dependence
CPT/HCPCS: 94060; 94729

== ENCOUNTER 2023-05-18 11:07 | Day surgery (SDC) | payer OTHER, MEDICAID, SELFPAY ==
[2023-05-01 10:45] VITALS: BMI 37.2
[2023-05-11 09:15] VITALS: BMI 35.5
--- NOTE | 2023-05-18 11:34 | PM.PREOP ---
Pre-operative Note Interval Note History & Physical reviewed/Exam performed by Physician: Yes Changes to H&P: No
[2023-05-18 11:37] VITALS: BP 168/98; PULSE 97; RESP 16; TEMP 36.2; O2SAT 98; BMI 35.5
[2023-05-18] MEDS: ALBUTEROL/IPRATROPIUM 3 ML AMPUL INH (11:52)
[2023-05-18] MEDS: LACTATED RINGERS 1,000 ML 42 ML IV (11:52)
[2023-05-18] MEDS: CEFAZOLIN VIAL 1 GM in SODIUM CHLORIDE 0.9% 100 ML IV (12:15)
[2023-05-18] MEDS: CEFAZOLIN 2 GM/100 ML PREMIX 100 ML IV (12:15)
--- NOTE | 2023-05-18 12:27 | SUR.OPER ---
Supine on padded OR bed, head on pillow, operative arm on padded hand table draped to field, left arm secured on padded arm board at <90 degrees abduction, legs uncrossed, safety belt at thigh, tape over blanket over lower legs.
[2023-05-18] MEDS: BUPIVACAINE 0.5% (PF) 30 ML, EPINEPHrine 0.15 MG INJ (13:00)
--- NOTE | 2023-05-18 13:13 | PM.OP.1 ---
Operative Date/Time/Diagnoses Date of procedure: 05/18/23 Time of procedure: 12:00 Pre-op diagnosis: Right small finger intra-articular PIP joint fracture Post-op diagnosis: same Procedure & Clinicians Procedure: Open reduction internal fixation of an intra-articular PIP joint fracture to the right small finger Same procedure as scheduled: Yes Indications: Displaced intra-articular fracture involving the PIP joint of the right small finger Surgeon: Brennan Laws Click Yes if Unassisted: Yes Anesthesia Type: Peripheral nerve block (Beir block) Operative Notes Findings: Displaced intra-articular fracture pilon type of the right small finger PIP joint Closure Type: primary Applied: implant(s) (3 K-wires) Estimated Blood Loss (mL): 5 Tourniquet time (min): 56 Procedure in detail: On date of service, patient was met in the holding area where his operative site was signed and witnessed by the OR staff. The surgery is once again discussed patient any remaining questions or concerns he had were answered to his full satisfaction. Patient was taken back to the operating theater and placed on operating table a supine position. Great care was taken to ensure that all bony prominences were appropriately padded. Well-padded tourniquet was placed along right upper extremity a time-out was performed verifying patient's name, procedure, operative site. Right arm was then exsanguinated using an Esmarch and the tourniquet was turned up 250 mmHg. Curvilinear incision was made centered over PIP joint of the right small finger. Fifteen blade was used to incise through skin and fascial tissue. Deep knife was used to dissect down until the extensor mechanism was visualized. Extensor tendon was split midline giving us good visualization of the PIP joint. Patient had a displaced intra-articular fracture involving both the dorsal volar components of the PIP joint. Like a pilon type fracture. Using a combination of traction 2 point reduction forceps we are able to reduce the articular surface. This was then held with K-wires. Mini C-arm was used to verify reduction K-wire positioning. Due to the fracture pattern in the small nature of fragments it was felt that plate and screw fixation were not adequately hold the articular surface in place K-wires would better job maintaining our reduction. And also the having worry about the screws splitting circular pieces to even smaller pieces. Total of 3 K-wires were placed allowing us to recreate the articular surface at PIP joint as well as provide fixation. Final x-rays were obtained. The wound was copiously irrigated and closed in layered fashion. The split in the extensor tendons was repaired with 4-0 Ethibond. The skin was closed with 5 nylon. Finger was then cleaned, dried, and dressed a splint was applied. Patient was taken to the PACU in stable condition. Complications: none Post-operative Condition: stable Disposition: PACU Plan for aftercare: Patient small finger PIP joint need to be immobilized for 4-6 weeks.
[2023-05-18 13:18] VITALS: BP 145/66; PULSE 78; RESP 16; TEMP 36.1; O2SAT 98
--- NOTE | 2023-05-19 12:26 | PM.PNB.1 ---
Peripheral Nerve Block Note Pre-Procedure Reason for block: Peripheral nerve block performed for surgical anesthesia Pre-procedure checklist: Patient examined and chart reviewed, Risks, benefits, alternatives of block discussed, questions answered, Verification of anti-coagulation status, Site confirmed, Timeout performed and Standard ASA monitors applied Consent obtained from: Patient Procedure Date of procedure: 05/18/23 Performed by: Mason Roy Sedation - enter dose in comment field: Other (include mg/mcg) (see anesthesia record) Location: Pre-Op Equipment Single injection - Needle brand, gauge, length: Solvay Block Medications Medications - enter concentration (%) & mL in comment field: Lidocaine (20mL 1% lidocaine with 15mL NS) Vital signs VS: see anesthesia record Oxygen Delivery Method Room Air Events Nerve Block Events: Procedure uneventful, Pain on injection and Resistance with injection
== END 2023-05-18 13:32 | disposition home or self-care (01) ==
PROVIDERS: Family Provider Student in an Organized Health Care Education/Training Program; PCP Family Medicine; Referring Provider Orthopaedic Surgery; Visit Provider Orthopaedic Surgery
PROC: (CPT 26746; principal; 2023-05-18 12:45)
DX: S62.626A Displaced fracture of middle phalanx of right little finger, initial encounter for closed fracture (principal); V29.99XA Rider (driver) (passenger) of other motorcycle injured in unspecified traffic accident, initial encounter; E66.9 Obesity, unspecified; Z68.35 Body mass index [BMI] 35.0-35.9, adult; E11.9 Type 2 diabetes mellitus without complications; Z79.4 Long term (current) use of insulin
CPT/HCPCS: 26746; J0171; J0690; J2250; J2704; J3010

== ENCOUNTER → 2023-06-15 08:23 | Outpatient (CLI) | payer OTHER, MEDICAID, SELFPAY ==
[2023-05-01 10:45] VITALS: BMI 37.2
== END ==
PROVIDERS: Family Provider Student in an Organized Health Care Education/Training Program; PCP Family Medicine; Referring Provider Family Medicine; Visit Provider Family Medicine
DX: R06.02 Shortness of breath (principal); J45.909 Unspecified asthma, uncomplicated; R05.9 Cough, unspecified; U09.9 Post COVID-19 condition, unspecified; Z87.891 Personal history of nicotine dependence
CPT/HCPCS: 94010; 94726; 94729

== ENCOUNTER → 2023-06-21 12:36 | Outpatient (CLI) | payer OTHER, MEDICAID, SELFPAY ==
[2023-05-01 10:45] VITALS: BMI 37.2
[2023-06-21 15:08] LABS: Hemoglobin A1C% w Est Avg Glu 8.3 % (4.0-6.0)
== END ==
PROVIDERS: Family Provider Student in an Organized Health Care Education/Training Program; PCP Family Medicine; Referring Provider Family Medicine; Visit Provider Family Medicine
DX: E66.01 Morbid (severe) obesity due to excess calories (principal); E11.9 Type 2 diabetes mellitus without complications
CPT/HCPCS: 36415; 83036

== ENCOUNTER → 2023-09-26 09:09 | Outpatient (CLI) | payer OTHER, MEDICAID, SELFPAY ==
[2023-05-01 10:45] VITALS: BMI 37.2
[2023-09-26 10:09] LABS: Hemoglobin A1C% w Est Avg Glu 8.5 % (4.0-6.0)
[2023-09-26 10:30] LABS: Add Manual Diff / Slide Review NO; Basophils Absolute Auto 100 /uL (0-100); Basophils Percent Auto 1.1 % (0-2); Eosinophils Absolute Auto 300 /uL (0-450); Eosinophils Percent Auto 2.1 % (2-4); Hematocrit 43.6 % (41-53); Hemoglobin 14.3 g/dL (13.5-17.5); Lymphocytes Absolute Auto 2000 /uL (1100-4500); Lymphocytes Percent Auto 16.5 % (25-40); Mean Corpuscular HGB Conc 32.8 % (30-36); Mean Corpuscular Hemoglobin 27.6 PG (26-34); Mean Corpuscular Volume 84.2 fL (80-100); Monocytes Absolute Auto 600 /uL (0-900); Monocytes Percent Auto 5.3 % (3-14); Neutrophils Absolute Auto 9100 /uL (1500-7000); Platelet Count 390 X10^3/uL (150-400); Red Blood Cell Count 5.17 X10^6/uL (4.5-5.9); Red Cell Distribution Width 14.5 % (11.6-14.8); White Blood Cell Count 12.2 X10^3/uL (4.5-11.0)
[2023-09-26 10:37] LABS: Alanine Aminotransferase 37 IU/L (<50); Albumin 3.7 g/dL (3.5-5.0); Albumin Globulin Ratio 1.2 (1.0-2.8); Alkaline Phosphatase 99 U/L (38-126); Aspartate Aminotransferase 25 IU/L (17-59); BUN Creatinine Ratio 25.8 (6-22); Bilirubin Total 0.6 mg/dL (0.2-1.3); Blood Urea Nitrogen 17 mg/dL (9-20); Carbon Dioxide 23 mmol/L (22-32); Chloride 105 mmol/L (98-107); Cholesterol 133 mg/dL (140-199); Estimated Glomerular Filt Rate > 60 mL/min (>60); Globulin 3.2 g/dL (1.7-4.1); Glucose 148 mg/dL (70-100); HDL Cholesterol 30 mg/dL (40-60); HEMOLYSIS < 15 (0-50); LDL Cholesterol Calculated 74 mg/dL (<100); Potassium 4.4 mmol/L (3.4-5.1); Sodium 136 mmol/L (137-145); Total Protein 6.9 g/dL (6.3-8.2); Triglycerides 146 mg/dL (35-150)
== END ==
LOC: LAB 09:10
PROVIDERS: PCP Family Medicine; Referring Provider Family Medicine; Visit Provider Family Medicine
DX: E11.9 Type 2 diabetes mellitus without complications (principal); Z13.220 Encounter for screening for lipoid disorders
CPT/HCPCS: 36415; 80053; 80061; 83036; 85025

== ENCOUNTER → 2023-11-01 11:09 | Outpatient (CLI) | payer OTHER, MEDICAID, SELFPAY ==
[2023-05-01 10:45] VITALS: BMI 37.2
--- NOTE | 2023-11-01 11:10 | DI.RAD.S_ITS ---
PROCEDURE: XR KNEE LT 3V INDICATIONS: Knee Pain TECHNIQUE: 3 views of the knee were acquired. COMPARISON: [facility], CR, XR KNEE LT 3V, 04/08/2023, 22:18. FINDINGS: Bones: No fractures or dislocations. No suspicious bony lesions. Tricompartmental joint space narrowing with associated osteophytosis. Soft tissues: Moderate joint effusion. No suspicious soft tissue calcifications. Chondrocalcinosis. IMPRESSION: Moderate knee joint effusion, without displaced fracture. [id number] tricompartmental osteoarthritis. Kellgren-Nigel Grade 2. Chondrocalcinosis, which can be seen in the setting of CPPD, aging, and parathyroid disorders. Dictated by: Paulo James M.D. on 11/01/2023 at 14:48 Approved by: Paulo James M.D. on 11/01/2023 at 14:49
--- NOTE | 2023-11-01 11:10 | DI.RAD.S_ITS ---
PROCEDURE: XR KNEE RT 3V INDICATIONS: Knee Pain TECHNIQUE: 3 views of the knee were acquired. COMPARISON: [facility], CR, XR KNEE LT 3V, 04/08/2023, 22:18. FINDINGS: Bones: No fractures or dislocations. No suspicious bony lesions. Tricompartmental joint space narrowing with associated osteophytosis. Soft tissues: Small joint effusion. No suspicious soft tissue calcifications. IMPRESSION: Imbg-jm-ynlvwnox tricompartmental osteoarthritis. Kellgren-Nigel Grade 2. Dictated by: Paulo James M.D. on 11/01/2023 at 14:49 Approved by: Paulo James M.D. on 11/01/2023 at 14:49
== END ==
PROVIDERS: PCP Family Medicine; Referring Provider Family Medicine; Visit Provider Family Medicine
DX: M17.0 Bilateral primary osteoarthritis of knee (principal); M25.462 Effusion, left knee; M25.461 Effusion, right knee; M25.569 Pain in unspecified knee; M11.262 Other chondrocalcinosis, left knee
CPT/HCPCS: 73562

== ENCOUNTER 2023-11-11 09:02 | Emergency (ER) | payer OTHER, MEDICAID, SELFPAY ==
[2023-05-01 10:45] VITALS: BMI 37.2
[2023-11-11 09:11] VITALS: BP 150/78; PULSE 99; RESP 16; TEMP 36.6; O2SAT 98; BMI 34.7
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
[2023-11-11 12:54] VITALS: BP 161/79; PULSE 93; RESP 18; O2SAT 98
[2023-11-11 13:16] LABS: Add Manual Diff / Slide Review NO; Basophils Absolute Auto 100 /uL (0-100); Basophils Percent Auto 0.6 % (0-2); Eosinophils Absolute Auto 0 /uL (0-450); Eosinophils Percent Auto 0.2 % (2-4); Hematocrit 41.5 % (41-53); Hemoglobin 13.6 g/dL (13.5-17.5); Lymphocytes Absolute Auto 1000 /uL (1100-4500); Lymphocytes Percent Auto 6.7 % (25-40); Mean Corpuscular HGB Conc 32.8 % (30-36); Mean Corpuscular Hemoglobin 27.6 PG (26-34); Mean Corpuscular Volume 84.2 fL (80-100); Monocytes Absolute Auto 800 /uL (0-900); Neutrophils Absolute Auto 13200 /uL (1500-7000); Neutrophils Percent Auto 87.5 % (50-75); Platelet Count 384 X10^3/uL (150-400); Red Blood Cell Count 4.93 X10^6/uL (4.5-5.9); Red Cell Distribution Width 14.7 % (11.6-14.8); White Blood Cell Count 15.1 X10^3/uL (4.5-11.0)
[2023-11-11 13:40] LABS: Erythrocyte Sedimentation Rate 29 MM/HR (0-15)
[2023-11-11 13:43] LABS: Alanine Aminotransferase 18 IU/L (<50); Albumin 4.6 g/dL (3.5-5.0); Albumin Globulin Ratio 1.3 (1.0-2.8); Alkaline Phosphatase 90 U/L (38-126); Aspartate Aminotransferase 15 IU/L (17-59); BUN Creatinine Ratio 36.8 (6-22); Bilirubin Total 0.6 mg/dL (0.2-1.3); Blood Urea Nitrogen 21 mg/dL (9-20); C-Reactive Protein Quant 2.8 mg/dL (<1.0); Calcium 9.5 mg/dL (8.4-10.2); Carbon Dioxide 23 mmol/L (22-32); Chloride 104 mmol/L (98-107); Estimated Glomerular Filt Rate > 60 mL/min (>60); Globulin 3.6 g/dL (1.7-4.1); Glucose 212 mg/dL (70-100); HEMOLYSIS < 15 (0-50); Magnesium 1.9 mg/dL (1.6-2.3); Sodium 138 mmol/L (137-145); Total Protein 8.2 g/dL (6.3-8.2); Uric Acid 4.8 mg/dL (3.5-8.5)
[2023-11-11 14:50] VITALS: BP 159/77; PULSE 93; RESP 18; O2SAT 97
[2023-11-11 15:52] LABS: Rheumatoid Factor < 8.6 IU/mL (<12.0)
[2023-11-15 17:12] LABS: ANA Screen, IFA Negative (.)
== END 2023-11-11 15:15 | disposition home or self-care (01) ==
PROVIDERS: Emergency Provider Emergency Medicine; PCP Family Medicine
DX: M13.0 Polyarthritis, unspecified (principal)
CPT/HCPCS: 36415; 80053; 81374; 83036; 83735; 84550; 85025; 85651; 86038; 86140; 86430; 87040; 99283

== ENCOUNTER → 2023-11-15 12:41 | Outpatient (CLI) | payer OTHER, MEDICAID, SELFPAY ==
[2023-05-01 10:45] VITALS: BMI 37.2
--- NOTE | 2023-11-15 12:42 | DI.MRI.S_ITS ---
PROCEDURE: MR KNEE LT WO CON INDICATIONS: PAIN IN LEFT KNEE/CONCERN FOR STRESS FRACTURE TECHNIQUE: Noncontrast sagittal PD fast spin echo and T2 fast spin echo with fat saturation, sagittal 3-D FLASH with fat saturation; coronal T1 spin echo and PD fast spin echo with fat saturation, and axial PD fast spin echo with fat saturation through the knee. COMPARISON: [facility], CR, XR KNEE STANDING BILATERAL, 11/03/2023, 16:52. [facility], CR, XR KNEE LT 3V, 11/01/2023, 11:09. FINDINGS: Image quality: Excellent. Menisci: Peripheral displacement of medial meniscus bowing medial collateral ligament is seen. There is suggestion of prior partial medial meniscectomy with truncated appearance of body and posterior horn. No gross recurrent tear is seen. There is also peripheral displacement of lateral meniscus with truncated appearance of the lateral meniscus suggestive of prior partial lateral meniscectomy. Signal abnormality involving posterior horn of lateral meniscus is seen extending to both superior and inferior articulating surfaces concerning for complex tear. Cruciate ligaments: The anterior cruciate ligament is thickened with intrasubstance T2 hyperintense signal. The posterior cruciate ligament is intact. Medial structures: The medial collateral ligament appears thickened with surrounding soft tissue edema. Visualized portions of the pes anserinus tendons appear normal. No abnormal bursal fluid. Lateral structures: The lateral collateral ligament is mildly thickened. The long and short heads of the biceps femoris tendon appear intact. The popliteus tendon appears thickened with intrasubstance T2 hyperintense signal. Iliotibial band appears normal. Anterior structures: The quadriceps and patellar tendons appear intact. Patellar alignment is normal. No femoral trochlear dysplasia or ventral trochlear prominence. No edema in the infrapatellar fat pad. Bones and cartilage: No bone marrow contusions or fractures. [id number] tricompartmental osteoarthritis and chondromalacia is seen more notably in medial and lateral femoral tibial compartments. Joint space: There is small to moderate knee joint fluid. A lobulated popliteal cyst is seen measures 3.5 x 3.7 x 6.2 cm in size. Normal appearing synovial plicae are incidentally noted. IMPRESSION: 1. Suggestion of prior partial medial and lateral meniscectomy with truncated appearance of the menisci suggest clinical correlation. No evidence of recurrent tear is seen in medial meniscal remanent. Suggestion of complex tear involving posterior horn lateral meniscal remanent extending to both superior and inferior articulating surfaces. 2. Degenerative changes in anterior cruciate ligament. No ACL rupture. The PCL is intact. 3. Low-grade MCL sprain/partial-thickness tear. Low-grade proximal LCL sprain. 4. Low-grade partial-thickness tear involving popliteus tendon. 5. No acute fracture or dislocation. No evidence of tibial stress fracture. [id number] tricompartmental osteoarthritis and chondromalacia more notably in medial and lateral femoral tibial compartments. Small to moderate joint effusion and a popliteal cyst as above. No loose bodies. Dictated by: Thaddeus Verma M.D. on 11/15/2023 at 22:28 Approved by: Thaddeus Verma M.D. on 11/15/2023 at 22:32
== END ==
LOC: MRI 12:41
PROVIDERS: PCP Family Medicine; Referring Provider Orthopaedic Surgery Foot and Ankle Surgery; Visit Provider Orthopaedic Surgery Foot and Ankle Surgery
DX: S83.412A Sprain of medial collateral ligament of left knee, initial encounter (principal); S83.422A Sprain of lateral collateral ligament of left knee, initial encounter; S76.812A Strain of other specified muscles, fascia and tendons at thigh level, left thigh, initial encounter; M17.12 Unilateral primary osteoarthritis, left knee; M94.262 Chondromalacia, left knee; M25.462 Effusion, left knee; M71.22 Synovial cyst of popliteal space [Baker], left knee; M25.562 Pain in left knee
CPT/HCPCS: 73721

== ENCOUNTER → 2023-12-06 12:27 | Outpatient (CLI) | payer OTHER, MEDICAID, SELFPAY ==
[2023-05-01 10:45] VITALS: BMI 37.2
[2023-12-06 13:30] LABS: Appearance Urine UA CLEAR; Bilirubin Urine UA NEGATIVE (NEGATIVE); Color Urine UA YELLOW; Glucose Urine UA 3+ g/dL (Negative); Ketones Urine UA NEGATIVE (NEGATIVE); Leukocyte Esterase Urine UA NEGATIVE (NEGATIVE); Nitrite Urine UA NEGATIVE (Negative); Occult Blood Urine UA NEGATIVE (Negative); Protein Urine UA NEGATIVE (Negative); Urobilinogen Urine UA 0.2 E.U./dL (0.2)
[2023-12-06 13:31] LABS: Add Manual Diff / Slide Review NO; Basophils Absolute Auto 100 /uL (0-100); Basophils Percent Auto 0.8 % (0-2); Eosinophils Absolute Auto 200 /uL (0-450); Eosinophils Percent Auto 1.8 % (2-4); Hematocrit 42.3 % (41-53); Lymphocytes Absolute Auto 1500 /uL (1100-4500); Lymphocytes Percent Auto 15.2 % (25-40); Mean Corpuscular HGB Conc 33.2 % (30-36); Mean Corpuscular Hemoglobin 28.2 PG (26-34); Mean Corpuscular Volume 85.1 fL (80-100); Monocytes Absolute Auto 700 /uL (0-900); Neutrophils Absolute Auto 7700 /uL (1500-7000); Neutrophils Percent Auto 75.2 % (50-75); Platelet Count 351 X10^3/uL (150-400); Red Blood Cell Count 4.98 X10^6/uL (4.5-5.9); Red Cell Distribution Width 14.7 % (11.6-14.8); White Blood Cell Count 10.2 X10^3/uL (4.5-11.0)
[2023-12-06 13:41] LABS: Bacteria Urine None Seen; Culture Indicated Urine Cult Not Indicated; RBC Urine None Seen (0-5/HPF); Squamous Epithelial Cell Urine None Seen (0-5/HPF); Urine Volume 10mL (spun); WBC Urine None Seen (0-5/HPF)
[2023-12-06 14:09] LABS: C-Reactive Protein Quant 1.7 mg/dL (<1.0); Creatine Kinase 32 U/L (55-170)
[2023-12-06 14:29] LABS: TSH w/ Reflex to FT4 0.97 uIU/mL (0.47-4.68)
[2023-12-06 14:40] LABS: Erythrocyte Sedimentation Rate 12 MM/HR (0-15)
[2023-12-06 14:51] LABS: Urine N gonorrhoeae NOT DETECTED
[2023-12-06 14:56] LABS: Urine Chlamydia NOT DETECTED
[2023-12-07 16:32] LABS: Hepatitis B Surface Antigen NEGATIVE s/c (NEGATIVE)
[2023-12-07 16:49] LABS: HIV 1 & 2 Ab/Ag 4th Gen Combo NEGATIVE (NEGATIVE); Hep C Virus Ab w/Reflex Quant NEGATIVE s/c (NEGATIVE)
[2023-12-08 00:08] LABS: Hepatitis B Core AB w/Reflex Negative (Negative)
== END ==
LOC: LAB 12:27
PROVIDERS: PCP Family Medicine; Referring Provider Family Medicine; Visit Provider Family Medicine
DX: M25.50 Pain in unspecified joint (principal); M79.10 Myalgia, unspecified site; M13.0 Polyarthritis, unspecified; Z11.4 Encounter for screening for human immunodeficiency virus [HIV]; Z11.59 Encounter for screening for other viral diseases; Z11.3 Encounter for screening for infections with a predominantly sexual mode of transmission
CPT/HCPCS: 81001; 82550; 84443; 85025; 85651; 86140; 86200; 86704; 86747; 86803; 87340; 87389; 87491; 87591; 87798

== ENCOUNTER → 2024-01-02 07:46 | Outpatient (CLI) | payer OTHER, MEDICAID, SELFPAY ==
[2023-05-01 10:45] VITALS: BMI 37.2
--- NOTE | 2024-01-02 07:48 | DI.US.S_ITS ---
PROCEDURE: US THYROID INDICATIONS: ENLARGED THYROID ON CT 04-08-23 TECHNIQUE: Real-time scanning was performed of the thyroid gland, with image documentation. COMPARISON: [facility], CT, CT CHEST ABD PEL W WENCESLAO, 04/08/2023, 21:49. FINDINGS: Thyroid: Right lobe measures 6.3 x 3.9 x 3.0 cm. Left lobe measures 5.8 x 2.3 x 2.5 cm. Isthmus is 5.8 cm thick. Echotexture is homogeneous. Nodule number: 1 Location: Left mid Size: 1.6 x 0.8 x 1.3 cm. Composition: Solid Echogenicity: Hypoechoic Shape: wider than tall. Margins: Smooth Echogenic foci: None Total points: 4 ACR TI-RADS category: 4 Nodule number: 2 Location: Right superior Size: 2.0 x 1.2 x 1.5 cm. Composition: Solid Echogenicity: Hypoechoic Shape: wider than tall. Margins: Smooth Echogenic foci: None Total points: 4 ACR TI-RADS category: 4 IMPRESSION: Lesions 1 and 2 are considered category 4. Secondary to size, FNA is recommended. ACR TI-RADS definitions and recommendations: TI-RADS 1 (benign): 0 points. FNA not needed. TI-RADS 2 (not suspicious): 2 points. FNA not needed. TI-RADS 3 (mildly suspicious): 3 points. * FNA if 2.5 cm or larger, follow up if 1.5 cm or larger (at 1, 3, and 5 years). TI-RADS 4 (moderately suspicious): 4-6 points. * FNA if 1.5 cm or larger, follow up if 1 cm or larger (at 1, 2, 3, and 5 years). TI-RADS 5 (highly suspicious): 7 points or more. * FNA if 1 cm or larger, follow up if 0.5 cm or larger (every year for 5 years). Dictated by: Brit Mejia M.D. on 01/02/2024 at 11:31 Approved by: Brit Mejia M.D. on 01/02/2024 at 11:32
--- NOTE | 2024-01-02 07:48 | DI.MRI.S_ITS ---
PROCEDURE: MR ABDOMEN ADRENAL PROTOCOL COMPARISON: [facility], CT, CT HEAD/BRAIN WO CON, 04/08/2023, 21:49. [facility], CT, CT CHEST ABD PEL W CON, 04/08/2023, 21:49. INDICATIONS: 4cm L adrenal mass on 04/08/23 CT Technique: MR images were obtained of the abdomen using multiple sequences and multiple planes without IV contrast. FINDINGS: Image quality: Diagnostic Lower chest: No basal effusions. Lung bases are not well evaluated on this study. Liver: Unremarkable Gallbladder and biliary system: Unremarkable, nondilated Pancreas: No ductal dilation Spleen: Nonenlarged Adrenals: 3.8 cm left adrenal lesion is similar in size compared to 2022 imaging. There is chemical shift artifact on opposed phase imaging indicating the presence of intravoxel fat Kidneys: No discrete mass. No hydronephrosis There are small cysts. Vessels and lymph nodes: No pathologic lymph nodes by size criteria. No abdominal aortic aneurysm. Bowel and peritoneum: No evidence of small bowel obstruction. No pathologic ascites. Body wall: Unremarkable Bones: No discrete suspicious osseous lesion. 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 This is stable in size compared to 04/08/2023. Given size close to 4 cm, consider additional endocrinology follow-up. Dictated by: Niles Smith M.D. on 01/02/2024 at 9:24 Approved by: Niles Smith M.D. on 01/02/2024 at 9:27
[2024-01-02 10:29] LABS: Lactate (Lactic Acid) 1.1 mmol/L (0.7-2.1)
[2024-01-02 10:32] LABS: C-Reactive Protein Quant < 0.5 mg/dL (<1.0)
[2024-01-04 17:09] LABS: Antimyeloperoxidase Antibodies <0.2 units (0.0-0.9); Antiproteinase 3 Antibodies <0.2 units (0.0-0.9); Cytoplasmic C-ANCA <1:20 titer (Neg:<1:20); Perinuclear P-ANCA <1:20 titer (Neg:<1:20)
== END ==
PROVIDERS: PCP Family Medicine; Referring Provider Family Medicine; Visit Provider Family Medicine
DX: E27.8 Other specified disorders of adrenal gland (principal); R93.89 Abnormal findings on diagnostic imaging of other specified body structures; M79.10 Myalgia, unspecified site; M25.50 Pain in unspecified joint; N28.1 Cyst of kidney, acquired
CPT/HCPCS: 36415; 74181; 76536; 83605; 86140; 86256; 87040

== ENCOUNTER → 2024-01-19 09:33 | Outpatient (CLI) | payer OTHER, MEDICAID, SELFPAY ==
[2023-05-01 10:45] VITALS: BMI 37.2
--- NOTE | 2024-01-19 | PATH_ITS ---
Note [facility] Accession Number: [id number] TESTS RESULT FLAG UNITS REF RANGE LAB Clinician Provided Cytology Information No. of containers..01 Other (Miscellaneous) No. of containers..02 Previously Prepared Cytology Slide Source: LEFT THYROID NODULE DIAGNOSIS: LEFT THYROID NODULE, FINE NEEDLE ASPIRATION. NEGATIVE FOR MALIGNANT CELLS. ADEQUATE FOR EVALUATION. COLLOID AND FOLLICULAR GROUPS ARE PRESENT. BENIGN FOLLICULAR (GOITEROUS) NODULE ([place] CATEGORY II), SEE COMMENT. COMMENT: MICROSCOPIC EXAMINATION REVEALS A MILDLY CELLULAR ASPIRATE, COMPOSED OF COLLOID AND FOLLICULAR GROUPS WITHOUT SIGNIFICANT CYTOLOGIC OR ARCHITECTURAL ATYPIA. THESE FINDINGS SUPPORT A BENIGN FOLLICULAR (GOITEROUS) NODULE. CORRELATION WITH CLINICAL AND RADIOGRAPHIC FINDINGS IS RECOMMENDED. ACCORDING TO THE [place] REPORTING SYSTEM FOR THYROID CYTOPATHOLOGY, THE RISK OF MALIGNANCY IN THE CATEGORY BENIGN-CATEGORY II IS 0-3%; THEREFORE RECOMMEND CONTINUED ULTRASOUND SURVEILLANCE WITH REPEAT FNA IF THE NODULE SIGNIFICANTLY INCREASES IN SIZE. Pathologist ICD10: 01 E04.1 Signed out by: Raina Garcia MD, Pathologist NPI- [id number] Performed by: Roshan Phan, Estate Manager ([facility]) Gross description: 30 CC, COLORLESS, CLEAR RECIEVED: IN CYTOLYT WITH 6 ALCOHOL FIXED AND 6 QUICK STAINED SLIDES ALSO 1 RNA VIAL WILL ON 06-20-2025.VO /VDU 01/22/2024 [facility] FLAG LEGEND: L-Low Normal,H-High Normal,LL-Alert Low,HH-Alert High <-Panic Low,>-Panic High,A-Abnormal,AA-Critical Abnormal Performed at: [address] [facility], [place] [address] Robert Oshea MD, Performed at: [address] [address], [place], [place] [id number] MD Robert Oshea MD Phone: [phone]
--- NOTE | 2024-01-19 09:34 | DI.US.S_ITS ---
PROCEDURE: US FINE NEEDLE ASPIRATION INDICATIONS: 2 lesions on 01/02/24 US that're considered TI-RADS 4 cytology TECHNIQUE: The indications, alternatives, benefits, risks, and complications of the procedure were explained to the patient. Written informed consent was obtained and placed in the chart. The thyroid region was examined sonographically and a site was chosen for ultrasound guided percutaneous sampling. The skin was prepared and draped in the usual fashion, and anesthetized with 1% lidocaine infiltrated from the skin down to the thyroid gland. Multiple passes were then performed, with contents emptied into an appropriate pathology specimen container. A bandage was applied to the area of access at completion of the study. COMPARISON: None. FINDINGS: Location(s) of lesion(s) sampled: Mid to lower pole left thyroid lobe nodule. Otter: 25 gauge hypodermic needles. Number of passes: 6 Medications: 1% lidocaine for local anaesthesia. Complications: None. IMPRESSION: Successful ultrasound-guided thyroid nodule fine needle aspiration, with cytology results pending. Please see chart below for management recommendations based on cytology results. [place] ReportingRecommendationsNon-diagnostic* Repeat US-guided FNA, with on-site cytology evaluation if possible. * Repeated non-diagnostic nodules without high suspicion US features: close observation vs surgical consult. * Consider surgery if nodule has high suspicion US features, grows >20% in 2 dimensions on followup, or patient has clinical risk factors for malignancy. Benign* If nodule has high suspicion US features: repeat US and FNA within 12 months. * If nodule has low to intermediate suspicion US features: repeat US at 12-24 months. If nodule grows (20% increase in at least 2 dimensions, with minimal increase of 2 mm or >50% change in volume), or development of new suspicious US features, then repeat FNA or continue followup. * If nodule has very low suspicion US features: followup US at >24 months. Atypia of undetermined significance, follicular lesion of undetermined significanceRepeat FNA, molecular testing, followup US, or surgical consult.Follicular neoplasm, suspicious for follicular neoplasmSurgical consult; also consider molecular testing. Suspicious for malignancySurgical consult.MalignantSurgical consult. Dictated by: Thaddeus Verma M.D. on 01/19/2024 at 13:19 Approved by: Thaddeus Verma M.D. on 01/19/2024 at 13:19
== END ==
PROVIDERS: PCP Family Medicine; Referring Provider Family Medicine; Visit Provider Family Medicine
DX: E04.1 Nontoxic single thyroid nodule (principal); R93.89 Abnormal findings on diagnostic imaging of other specified body structures
CPT/HCPCS: 10005